=== PATIENT | male | born 1950 | race Two or more races ===

== ENCOUNTER 2019-06-30 04:50 | Emergency (ER) | payer OTHER ==
[~2019-06-30] VITALS: Ht 182.9 cm; Wt 104.3 kg
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
[2019-06-30] MEDS ORDERED: HYDROCODONE/APAP 5/325MG 1 EACH TABLET ONE (05:52)
[2019-06-30] MEDS ORDERED: KETOROLAC TROMETHAMINE INJ 30 MG/ML VIAL ONE (05:52)
[2019-06-30] MEDS ORDERED: CYCLOBENZAPRINE 10 MG TABLET ONE (05:52)
[2019-06-30] MEDS ORDERED: KETOROLAC TROMETHAMINE INJ 30 MG/ML VIAL IM ONE (06:00)
[2019-06-30] MEDS ORDERED: HYDROCODONE/APAP 5/325MG 1 EACH TABLET PO ONE (06:00)
[2019-06-30] MEDS ORDERED: CYCLOBENZAPRINE 10 MG TABLET PO ONE (06:00)
--- NOTE | 2019-06-30 06:54 | NUR ---
Patient discharged to home in stable condition. Written and verbal after care instructions given. Patient verbalizes understanding of instruction.
[2019-06-30 06:55] VITALS: BP 141/85
== END 2019-06-30 06:55 | disposition home or self-care (01) ==
LOC: ER 04:54
DX: S16.1XXA Strain of muscle, fascia and tendon at neck level, initial encounter (principal); I10 Essential (primary) hypertension; E78.5 Hyperlipidemia, unspecified; V49.49XA Driver injured in collision with other motor vehicles in traffic accident, initial encounter; Y93.89 Activity, other specified; Y92.488 Other paved roadways as the place of occurrence of the external cause; Y99.8 Other external cause status
CPT/HCPCS: 96372; 99283; J1885

== ENCOUNTER 2023-09-12 06:44 | Emergency (ER) | payer OTHER ==
[~2023-09-12] VITALS: Ht 182.9 cm; Wt 102.1 kg
[2023-09-12] MEDS ORDERED: TDAP [DIPH/PERTUSSIS/TET] 0.5 ML VIAL IM ONE ×2 (07:30→08:07)
[2023-09-12] MEDS ORDERED: IBUPROFEN 600 MG TABLET PO ONE (07:30)
[2023-09-12] MEDS ORDERED: ACETAMINOPHEN ES 500 MG TABLET PO ONE (07:30)
[2023-09-12] MEDS ORDERED: ACETAMINOPHEN ES 500 MG TABLET ONE (08:07)
[2023-09-12] MEDS ORDERED: IBUPROFEN 600 MG TABLET ONE (08:07)
[2023-09-12] MEDS ORDERED: IBUP-1953 PO (09:48)
[2023-09-12 10:18] VITALS: BP 121/83; TEMP 98; O2SAT 98
== END 2023-09-12 10:19 | disposition home or self-care (01) ==
LOC: ER 06:48
DX: S39.012A Strain of muscle, fascia and tendon of lower back, initial encounter (principal); S16.1XXA Strain of muscle, fascia and tendon at neck level, initial encounter; S50.12XA Contusion of left forearm, initial encounter; S60.222A Contusion of left hand, initial encounter; I10 Essential (primary) hypertension; E78.5 Hyperlipidemia, unspecified; V03.90XA Pedestrian on foot injured in collision with car, pick-up truck or van, unspecified whether traffic or nontraffic accident, initial encounter; Y93.89 Activity, other specified; Y92.89 Other specified places as the place of occurrence of the external cause; Y99.8 Other external cause status
CPT/HCPCS: 70450-TC; 72125-TC; 72131-TC; 73110; 73130-TC; 90715